=== PATIENT | male | born 1955 | race Caucasian/White ===

== ENCOUNTER 2019-02-09 10:10 | Emergency (ER) | payer BC, OTHER ==
[2019-02-09 10:32] VITALS: BP 140/87; PULSE 77
[2019-02-09] MEDS ORDERED: Lidocaine 1% 20 ML MDV INJECT ONE (11:00)
[2019-02-09] MEDS ORDERED: Lidocaine 1% 20 ML MDV ONE (11:01)
--- NOTE | 2019-02-09 11:17 | EDM.PDOC ---
ED HPI GENERAL MEDICAL PROBLEM - General Chief Complaint: General Stated Complaint: LEFT THUMB LACERATION Time Seen by Provider: 02/09/19 11:12 Source of Information: Reports: Patient History Limitations: Reports: No Limitations - History of Present Illness INITIAL COMMENTS - FREE TEXT/NARRATIVE: Patient's a 63-year-old gentleman who presents to the emergency department this morning with a complaint of laceration to left thumb. Patient states he accidentally brushed up against sharp metal and cut his left thumb just prior to arrival. Patient denies any other injury. Onset: Sudden Duration: Minutes: Location: Reports: Upper Extremity, Left Quality: Reports: Burning Severity: Mild Improves with: Reports: None Worsens with: Reports: None Context: Reports: Trauma Associated Symptoms: Reports: No Other Symptoms - Related Data Allergies Allergy/AdvReac Type Severity Reaction Status Date / Time No Known Drug Allergies Allergy Cannot Verified 02/09/19 10:32 Remember Home Meds: Home Meds Aspirin [Halfprin] 81 mg PO DAILY 06/02/15 [History] Lisinopril [Zestril] 10 mg PO DAILY 06/02/15 [History] Omeprazole 40 mg PO DAILY 03/16/18 [History] Multivitamin [Multivitamins] 1 each PO DAILY 02/09/19 [History] Past Medical History HEENT History: Reports: Impaired Vision Cardiovascular History: Reports: Hypertension Gastrointestinal History: Reports: GERD Musculoskeletal History: Reports: Fracture - Past Surgical History HEENT Surgical History: Reports: Oral Surgery, Tonsillectomy Cardiovascular Surgical History: Reports: None GI Surgical History: Reports: Appendectomy, Colonoscopy, EGD, Hernia Repair/ Other Musculoskeletal Surgical History: Reports: Other (See Below) Other Musculoskeletal Surgeries/Procedures:: LEFT WRIST RECONSTRUCTION Social & Family History - Family History Family Medical History: Unobtainable - Tobacco Use Smoking Status *Q: Former Smoker Used Tobacco, but Quit: Yes Month/Year Tobacco Last Used: quit 50 yrs ago - Caffeine Use Caffeine Use: Reports: Coffee - Recreational Drug Use Recreational Drug Use: No ED ROS GENERAL - Review of Systems Review Of Systems: ROS reveals no pertinent complaints other than HPI. Constitutional: Reports: No Symptoms HEENT: Reports: No Symptoms Respiratory: Reports: No Symptoms Cardiovascular: Reports: No Symptoms Endocrine: Reports: No Symptoms GI/Abdominal: Reports: No Symptoms : Reports: No Symptoms Musculoskeletal: Reports: Hand Pain (Left thumb) Skin: Reports: Wound (2 cm laceration to left thumb\) Neurological: Reports: No Symptoms Psychiatric: Reports: No Symptoms Hematologic/Lymphatic: Reports: No Symptoms Immunologic: Reports: No Symptoms ED EXAM, GENERAL - Physical Exam Exam: See Below Exam Limited By: No Limitations General Appearance: Alert, WD/WN, No Apparent Distress Throat/Mouth: Normal Inspection, Normal Oropharynx, No Airway Compromise Respiratory/Chest: No Respiratory Distress Extremities: Other (2 cm linear laceration to left thumb, dorsal aspect) Neurological: Alert, Oriented, Normal Cognition Psychiatric: Normal Affect, Normal Mood Skin Exam: Warm, Dry, Normal Color, Wound/Incision (As above) ED GENERAL MEDICAL PROCEDURES - Laceration/Wound Repair Left Midline Dorsal Digit - 1st (Thumb) Lac/wound length in cm: 2 Appearance: Superficial Distal NVT: Neuro & Vascular Intact, No Tendon Injury Anesthetic Type: Digital Local Anesthesia - Lidocaine (Xylocaine): 1% Plain Local Anesthetic Volume: 2cc Skin Prep: Providone-Iodine (Betadine) Closed with: Sutures Suture Size: 4-0 # of Sutures: 5 Suture Type: Interrupted Sterile Dressing Applied: Nurse Tetanus Status Addressed: Yes Complications: No Course - Vital Signs Last Recorded V/S: Last Vital Signs Temp 97.5 F 02/09/19 10:27 Pulse 77 02/09/19 10:27 Resp 20 02/09/19 10:27 BP 140/87 02/09/19 10:27 Pulse Ox 94 L 02/09/19 10:27 - Orders/Labs/Meds Meds: Medications Discontinued Medications Generic Name Dose Route Start Last Admin Trade Name Deborah PRN Reason Stop Dose Admin Lidocaine HCl Confirm 02/09/19 11:01 Xylocaine 1% Administered 02/09/19 11:02 Dose 20 ml .ROUTE .STK-MED ONE - Re-Assessments/Exams Free Text/Narrative Re-Assessment/Exam: 02/09/19 11:16 Patient afebrile, vital signs stable, tolerated procedure well. Patient will follow-up in 10 days at the clinic for suture removal Departure - Departure Time of Disposition: 11:16 Disposition: Home, Self-Care 01 Condition: Good Clinical Impression: Finger laceration Qualifiers: Encounter type: initial encounter Finger: thumb Damage to nail status: without damage Foreign body presence: without foreign body Laterality: left Qualified Code(s): S61.012A - Laceration without foreign body of left thumb without damage to nail, initial encounter - Discharge Information Instructions: Laceration Care, Adult, [id number], Stitches, Ebony, or Adhesive Wound Closure, [id number], Sutured Wound Care, [id number] Referrals: Scarlett Summers MD [Primary Care Provider] - Additional Instructions: Follow-up at the clinic in 10 days for suture removal. Return to emergency department sooner if symptoms continue or worsen. - Assessment/Plan Assessment:: Laceration left thumb Plan: Follow-up with the clinic
== END 2019-02-09 11:25 | disposition home or self-care (01) ==
LOC: KA.ED 10:10
DX: S61.012A Laceration without foreign body of left thumb without damage to nail, initial encounter (principal); I10 Essential (primary) hypertension; K21.9 Gastro-esophageal reflux disease without esophagitis; Z79.82 Long term (current) use of aspirin; Z79.899 Other long term (current) drug therapy; W26.8XXA Contact with other sharp object(s), not elsewhere classified, initial encounter; Z87.891 Personal history of nicotine dependence
CPT/HCPCS: 12001; 99282; J2001

== ENCOUNTER 2019-12-15 00:25 | Emergency (ER) | payer BC, OTHER ==
[2019-12-15] MEDS ORDERED: Morphine 2 MG/ML SYRINGE ONE (00:44)
[2019-12-15] MEDS ORDERED: Morphine 2 MG/ML SYRINGE IVPUSH ONE (00:45)
[2019-12-15] MEDS ORDERED: Ondansetron 4 MG/2 ML SDV ONE (00:53)
[2019-12-15] MEDS ORDERED: Ondansetron 4 MG/2 ML SDV IVPUSH ONE (01:09)
[2019-12-15] MEDS ORDERED: Acetaminophen/HYDROcodone 325-10 MG Tab PO ONE (01:13)
--- NOTE | 2019-12-15 01:19 | EDM.PDOC ---
ED HPI GENERAL MEDICAL PROBLEM - General Chief Complaint: General Stated Complaint: RUQ pain Time Seen by Provider: 12/15/19 01:00 Source of Information: Reports: Patient, Family () - History of Present Illness INITIAL COMMENTS - FREE TEXT/NARRATIVE: 64-year-old male presents to the emergency room with an abrupt onset of right rib pain. Patient has recently imaged guided drainage and sclerotherapy therapy for right renal cyst with drain placement done on 12/07/2019. He had the drain removed on 12/14/19. He is having no pain or symptoms no drainage from the area of drain removal. He went to bed at 9:00 this evening and woke up abruptly at about 1145 with severe right rib pain. This was worse with movement. He reports no shortness of breath no chest pain. Reports no difficulty breathing. His gave him some ibuprofen which didn't really seem to improve his symptoms. He is not have any fever or chills no abdominal pain. He is conversive and nontoxic appearing. Onset: Today Onset Date: 12/14/19 Duration: Hour(s):, Waxing/Waning Location: Reports: Chest Quality: Reports: Sharp Severity: Moderate Improves with: Reports: Rest Worsens with: Reports: Movement Associated Symptoms: Reports: No Other Symptoms. 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 - Related Data Allergies Allergy/AdvReac Type Severity Reaction Status Date / Time No Known Drug Allergies Allergy Cannot Verified 12/15/19 01:02 Remember Home Meds: Home Meds Aspirin [Halfprin] 81 mg PO DAILY 06/02/15 [History] lisinopriL [Zestril] 10 mg PO DAILY 06/02/15 [History] Omeprazole 40 mg PO DAILY 03/16/18 [History] Multivitamin [Multivitamins] 1 each PO DAILY 02/09/19 [History] Rosuvastatin Calcium 10 mg PO DAILY 12/15/19 [History] Past Medical History HEENT History: Reports: Impaired Vision Cardiovascular History: Reports: Hypertension Gastrointestinal History: Reports: GERD Musculoskeletal History: Reports: Fracture - Past Surgical History HEENT Surgical History: Reports: Oral Surgery, Tonsillectomy Cardiovascular Surgical History: Reports: None GI Surgical History: Reports: Appendectomy, Colonoscopy, EGD, Hernia Repair/Other Musculoskeletal Surgical History: Reports: Other (See Below) Other Musculoskeletal Surgeries/Procedures:: LEFT WRIST RECONSTRUCTION Social & Family History - Family History Family Medical History: Unobtainable - Caffeine Use Caffeine Use: Reports: Coffee ED ROS GENERAL - Review of Systems Review Of Systems: Comprehensive ROS is negative, except as noted in HPI. ED EXAM, GENERAL - Physical Exam Exam: See Below Exam Limited By: No Limitations General Appearance: Alert, WD/WN, No Apparent Distress Ears: Hearing Grossly Normal Nose: Normal Inspection Throat/Mouth: Normal Inspection, Normal Voice, No Airway Compromise Head: Atraumatic Neck: Normal Inspection Respiratory/Chest: No Respiratory Distress, Lungs Clear, Normal Breath Sounds, No Accessory Muscle Use, Other (right chest way tenderness, dressing on the right chest wall was without active drainage) Cardiovascular: Regular Rate, Rhythm GI/Abdominal: Normal Bowel Sounds, Soft, Non-Tender Back Exam: Normal Inspection Extremities: Normal Inspection, Normal Range of Motion Neurological: Alert, Oriented, CN II-XII Intact, No Motor/Sensory Deficits Psychiatric: Normal Affect, Normal Mood Skin Exam: Warm, Dry, Intact, Normal Color, No Rash Course - Vital Signs Last Recorded V/S: Last Vital Signs Temp 98.6 F 12/15/19 00:25 Pulse 72 12/15/19 00:25 Resp 18 12/15/19 00:25 BP 147/81 H 12/15/19 00:25 Pulse Ox 94 L 12/15/19 00:25 - Orders/Labs/Meds Orders: Active Orders 24 hr Category Date Time Status CXR [Chest 2V] [CR] Stat Exams 12/15/19 01:22 Ordered Labs: Laboratory Tests 12/15/19 12/15/19 Range/Units 00:40 00:40 WBC 13.02 H (5.00-10.00) 10^3/uL RBC 4.80 (4.50-6.00) 10^6/uL Hgb 14.9 (13.0-17.0) g/dL Hct 43.7 (40.0-52.0) % MCV 91.0 (82.0-92.0) fL MCH 31.0 (27.0-31.0) pg MCHC 34.1 (32.0-36.0) g/dL RDW 13.0 (11.5-14.5) % Plt Count 230 (150-400) 10^3/uL MPV 10.4 (7.4-10.4) fL Immature Gran % (Auto) 0.2 (0.0-5.0) % Neut % (Auto) 79.0 H (50.0-70.0) % Lymph % (Auto) 10.8 L (20.0-40.0) % Humphreys % (Auto) 8.1 H (2.0-8.0) % Eos % (Auto) 1.5 (1.0-3.0) % Baso % (Auto) 0.4 (0.0-1.0) % Neut # (Auto) 10.29 H (2.50-7.00) 10^3/uL Lymph # (Auto) 1.40 (1.00-4.00) 10^3/uL Humphreys # (Auto) 1.05 H (0.10-0.80) 10^3/uL Eos # (Auto) 0.20 (0.10-0.30) 10^3/uL Baso # (Auto) 0.05 (0.00-0.10) 10^3/uL Immature Gran # (Auto) 0.03 (0.00-0.50) 10^3/uL Sodium 142 (136-145) mmol/L Potassium 4.1 (3.3-5.3) mmol/L Chloride 105 (98-115) mmol/L Carbon Dioxide 23.4 (21.0-32.0) mmol/L Anion Gap 17.7 H (5-15) mmol/L BUN 14 (6-25) mg/dL Creatinine 0.78 (0.51-1.17) mg/dL Est Cr Clr Drug Dosing 92.56 mL/min Estimated GFR (MDRD) > 60 mL/min Glucose 101 H (75 - 99) mg/dL Calcium 8.2 L (8.7-10.3) mg/dL Meds: Medications Discontinued Medications Generic Name Dose Route Start Last Admin Trade Name Freq PRN Reason Stop Dose Admin Hydrocodone Bitart/Acetaminophen 1 tab 12/15/19 01:13 12/15/19 01:19 Wykoff 325-10 Mg PO 12/15/19 01:14 1 tab ONETIME ONE Administration Ketorolac Tromethamine 30 mg 12/15/19 01:40 12/15/19 01:49 Toradol IVPUSH 12/15/19 01:41 30 mg ONETIME ONE Administration Morphine Sulfate Confirm 12/15/19 00:44 12/15/19 01:15 Morphine Administered 12/15/19 00:45 Not Given Dose 2 mg .ROUTE .STK-MED ONE Morphine Sulfate 2 mg 12/15/19 00:45 12/15/19 00:48 Morphine IVPUSH 12/15/19 00:46 2 mg ONETIME ONE Administration Ondansetron HCl Confirm 12/15/19 00:53 12/15/19 01:15 Zofran Administered 12/15/19 00:54 Not Given Dose 4 mg .ROUTE .STK-MED ONE Ondansetron HCl 4 mg 12/15/19 01:09 Zofran IVPUSH 12/15/19 01:10 ONETIME ONE - Radiology Interpretation Free Text/Narrative:: Chest x-ray 2 views Findings: No pleural fluid. Heart size normal. No acute fracture. Impression: Decreased lung volumes with focal alveolar consolidation of the left lung base and bilateral basilar atelectasis to be compared to prior chest x-ray when available. No pneumothorax Departure - Departure Time of Disposition: 02:04 Disposition: Home, Self-Care 01 Condition: Good Clinical Impression: Rib pain on right side, Acute costochondritis - Discharge Information Instructions: Chest Wall Pain, Costochondritis Forms: ED Department Discharge Sepsis Event Note (ED) - Focused Exam Vital Signs: Vital Signs Temp Pulse Resp BP Pulse Ox 12/15/19 00:25 98.6 F 72 18 147/81 H 94 L - My Orders Last 24 Hours: My Active Orders 12/15/19 01:22 CXR [Chest 2V] [CR] Stat - Assessment/Plan Last 24 Hours: My Active Orders 12/15/19 01:22 CXR [Chest 2V] [CR] Stat Assessment:: Right rib pain after surgical procedure Costochondritis Plan: 1. Wykoff 5/325 one to 2 every 6 hours when necessary for pain 2. Toradol 10 mg one by mouth every 8 hours when necessary for pain. 3. Flexeril 10 mg 1 by mouth every 8 hours when necessary for muscle spasm 4. Follow-up with Dr. Scarlett Lepe in clinic within the next 72 hours for recheck.
[2019-12-15 01:23] LABS: ANION GAP 17.7 mmol/L (5-15); CHLORIDE,CL 105 mmol/L (98-115); SODIUM,NA 142 mmol/L (136-145)
[2019-12-15] MEDS ORDERED: Ketorolac 30 MG/ML SDV IVPUSH ONE (01:40)
[2019-12-15 02:29] VITALS: BP 135/75; PULSE 68
--- NOTE | 2019-12-15 08:14 | CR ---
[id number] RAD/RAD Chest PA And Lateral EXAM: RAD Chest PA And Lateral CLINICAL DATA: STATUS POST REMOVAL OF CHEST WALL DRAINAGE COMPARISON: CORRELATION IS MADE WITH FEBRUARY 19, 2018 FINDINGS: There is bibasilar discoid atelectasis A round density is seen at the left lung base There is no pneumothorax The cardiac silhouette is stable IMPRESSION: NO PNEUMOTHORAX BIBASILAR DISCOID ATELECTASIS DENSITY LEFT BASE CONSIDER CT Sameer Novak MD 12/15/19 0814 Thank you for allowing us to participate in the care of your patient.
== END 2019-12-15 02:10 | disposition home or self-care (01) ==
LOC: KA.ED 00:25
DX: M94.0 Chondrocostal junction syndrome [Tietze] (principal); I10 Essential (primary) hypertension; K21.9 Gastro-esophageal reflux disease without esophagitis; Z79.82 Long term (current) use of aspirin; Z79.899 Other long term (current) drug therapy
CPT/HCPCS: 71046; 80048; 85025; 96374; 96375; 99283-25; 99284; A9270-GY; J1885; J2270

== ENCOUNTER 2021-09-11 07:51 | Day surgery (SDC) | payer MEDICARE, BC ==
[2021-09-11] MEDS ORDERED: Lactated Ringers 1,000 ML IV SCH (08:00)
[2021-09-11] MEDS ORDERED: Sodium Chloride 0.9% 10 ML Syringe FLUSH PRN (08:00)
[2021-09-11] MEDS ORDERED: Lidocaine 2% 5 ML SDV ONE (08:50)
[2021-09-11] MEDS ORDERED: Propofol 200 MG/20 ML SDV ONE (08:50)
[2021-09-11] MEDS ORDERED: Glycopyrrolate 0.2 MG/ML SDV ONE (08:50)
[2021-09-11] MEDS ORDERED: Midazolam 1 MG/ML 2 ML SDV ONE (08:50)
[2021-09-11 10:37] VITALS: BP 125/70; PULSE 80
== END 2021-09-11 10:35 | disposition home or self-care (01) ==
LOC: KA.SDS 07:51
PROVIDERS: ATTEND Surgery
DX: K29.50 Unspecified chronic gastritis without bleeding (principal); K29.80 Duodenitis without bleeding; Z79.82 Long term (current) use of aspirin; Z79.899 Other long term (current) drug therapy
CPT/HCPCS: 00731; J2250; J2704; J3490; J7120